=== PATIENT | female | born 1975 | race Two or more races ===

== ENCOUNTER 2024-09-08 14:41 | Emergency (ER) | payer BC ==
[~2024-09-08] VITALS: Ht 157.5 cm; Wt 72.6 kg
[2024-09-08] MEDS ORDERED: CEPH-570 PO (15:32)
[2024-09-08 15:40] LABS: APPEARANCE,URINE CLEAR (CLEAR); BLOOD, URINE Small Ery/uL (NEGATIVE); LEUKOCYTE ESTERASE ,URINE Negative (NEGATIVE); UGLUCOSE Negative (NEGATIVE)
[2024-09-08 15:47] LABS: NITRITE, URINE NEGATIVE (NEGATIVE)
[2024-09-08 15:48] LABS: ADD URINE CULTURE NO; SQUAMOUS EPITHELIAL CELL,UR Few /HPF (None Seen)
[2024-09-08] MEDS ORDERED: CEFTRIAXONE 500 MG VIAL ONE (15:55)
[2024-09-08] MEDS: CEFTRIAXONE 500 MG VIAL IM ONE (16:06)
[2024-09-08 16:36] VITALS: BP 115/78; TEMP 98.1; O2SAT 99
== END 2024-09-08 16:37 | disposition home or self-care (01) ==
LOC: ER 15:09
DX: N39.0 Urinary tract infection, site not specified (principal)
CPT/HCPCS: 99283; 96372; 87086; 81001; J0696